=== PATIENT | female | born 1985 | race African-American/Black ===

== ENCOUNTER 2017-09-07 00:16 | Emergency (ER) | payer OTHER ==
[~2017-09-07] VITALS: Ht 167.6 cm; Wt 130.0 kg
[~2017-09-07 00:16] MED LIST: Z.0.NO CURRENT MEDS
[2017-09-07 00:20] VITALS: BP 139/76; PULSE 90; RESP 16; TEMP 99; O2SAT 100
[2017-09-07] MEDS ORDERED: SODIUM CHLOR 0.9% 1000 ML INJ 1,000 ML IV ONE (01:00)
[2017-09-07] MEDS ORDERED: KETOROLAC TROMETHAMINE 30 MG/ML (IVP) VIAL IV PUSH ONE (01:00)
[2017-09-07] MEDS ORDERED: METOCLOPRAMIDE INJ 10 MG in SODIUM CHLORIDE 0.9% INJ 50 ML IV ONE (01:00)
--- NOTE | 2017-09-07 01:13 | PD ---
HPI Chief Complaint: Headache Time Seen by Provider: 00:41 Travel History International Travel<30 days: No Contact w/Intl Traveler<30days: No Traveled to known affect area: No History of Present Illness HPI 32yo F with PMH of migraine headache here with c/o left sided headache for 4 days. States it is sharp, nonradiating and feels like her migraines. Associated with photophobia and nausea. Denies any fever, neck stiffness, visual changes, chest pain, sob, n/v, abdominal pain, focal weakness or numbness. Denies any trauma. Said she hasnt had a migraine in about 7 months. PFSH Past Medical History Asthma: Yes Cancer: No Diabetes: No Hepatitis: No Hiatal Hernia: No Respiratory: Yes (ASTHMA) Thyroid Disease: No ?: Not Past Surgical History Section: Yes (2) Gynecologic Surgery: Yes (C SECTION X2) Oral Surgery: Yes Tonsillectomy: Yes Other Surgery: Yes Social History Alcohol Use: No Tobacco Use: No Substance Use: No Allergies-Medications (Allergen,Severity, Reaction): Coded Allergies: erythromycin base (Unverified Allergy, Unknown, 09/07/17) HIVES,FEVER Reported Meds & Prescriptions Reported Meds & Active Scripts Active No Active Prescriptions or Reported Medications Review of Systems Except as stated in HPI: all other systems reviewed are Neg Physical Exam Narrative GENERAL: 32yo F in mild distress. SKIN: Focused skin assessment warm/dry. HEAD: Atraumatic. Normocephalic. EYES: Pupils equal and round at 4mm bilaterally. EOMI. +TTP left frontal and maxillary sinus. ENT: No nasal bleeding or discharge. Mucous membranes pink and moist. NECK: No nuchal rigidity. CARDIOVASCULAR: Regular rate and rhythm. No murmur appreciated. RESPIRATORY: No accessory muscle use. Clear to auscultation. Breath sounds equal bilaterally. GASTROINTESTINAL: Abdomen soft, non-tender, nondistended. MUSCULOSKELETAL: No obvious deformities. No clubbing. No cyanosis. No edema. NEUROLOGICAL: Awake and alert. No obvious cranial nerve deficits. Motor grossly within normal limits in all extremities. Sensation intact. Normal speech. PSYCHIATRIC: Appropriate mood and affect; insight and judgment normal. Data Data Last Documented VS Vital Signs Date Time Temp Pulse Resp B/P (MAP) Pulse Ox O2 Delivery O2 Flow Rate FiO2 09/07/17 00:20 99.0 90 16 139/76 (97) 100 Room Air Orders Orders Ketorolac Inj (Toradol Inj) (09/07/17 01:00) Metoclopramide Inj (Reglan Inj) (09/07/17 01:00) Sodium Chlor 0.9% 1000 Ml Inj (Ns 1000 M (09/07/17 01:00) Acetaminophen (Tylenol) (09/07/17 02:15) MDM Medical Decision Making Medical Screen Exam Complete: Yes Emergency Medical Condition: Yes Differential Diagnosis Sinus headache vs. migraine headache vs. tension headache Narrative Course 32yo F with left sided headache for 4 days that feels like her migraine headache. No red flags. Vital signs normal. Pt given toradol, reglan, and NS IVF. Pt reevaluated at bedside and said her headache has completely resolved. She feels much better and wants to go home. No symptoms currently. Return precautions given. Diagnosis Primary Impression: Headache Qualified Codes: R51 - Headache Patient Instructions: General Instructions Departure Forms: Tests/Procedures Additional Instructions: Please follow up with your primary care physician in 2-3 days. Return to the ED if symptoms worsen. Med/Other Pt SpecificInfo: Prescription(s) given Scripts Acetaminophen (Tylenol) 325 Mg Tab 650 MG PO Q6H Y for PAIN SCALE 1 TO 4, #20 TAB 0 Refills Prov: DeyTameka 09/07/17 Disposition: 01 DISCHARGE HOME Condition: Stable TiburcioTameka DO Sep 07, 2017 01:13
[2017-09-07] MEDS ORDERED: ACETAMINOPHEN 500 MG CPLT PO ONE (02:15)
[2017-09-07] MEDS ORDERED: TYLE325T PO (02:51)
== END 2017-09-07 03:07 | disposition home or self-care (01) ==
LOC: NEPE 00:16
DX: R51 Headache (principal); J45.909 Unspecified asthma, uncomplicated; Z88.1 Allergy status to other antibiotic agents
CPT/HCPCS: 96365; 96375; 99284; J1885; J2765; J7030